=== PATIENT | female | born 1985 | race Hispanic/Latino ===

== ENCOUNTER 2018-07-06 12:41 | Emergency (ER) | payer OTHER ==
[2018-07-06] MEDS ORDERED: DiphenhydrAMINE HCL 50 MG/ML VIAL ONE (12:51)
[2018-07-06] MEDS ORDERED: METHYLPREDNISOLONE SOD SUCC 125MG/2ML VIAL ONE (12:51)
[2018-07-06] MEDS ORDERED: FAMOTIDINE/PF 20 MG/2 ML VIAL IV ONE (12:51)
[2018-07-06 13:33] LABS: BASOPHILS % (AUTO) 0.4 % (0.0-5.0); EOSINOPHILS % (AUTO) 1.2 % (0.0-8.0); HEMATOCRIT 33.3 % (36-48); LYMPHOCYTES % (AUTO) 34.6 % (21.0-51.0); MEAN CORPUSCULAR HEMOGLOBIN 22.7 pg (27.0-33.0); MEAN CORPUSCULAR HGB CONC 31.5 g/dL (32.0-36.0); MEAN CORPUSCULAR VOLUME 72.3 fL (79-99); MONOCYTES % (AUTO) 5.1 % (3.0-13.0); NEUTROPHILS % (AUTO) 58.7 % (40.0-77.0); PLATELET COUNT (AUTO) 330 K/uL (130-400); RED BLOOD CELL COUNT(AUTO) 4.61 MIL/uL (4.00-5.50); RED CELL DISTRIBUTION WIDTH 17.7 % (11.0-15.5); WHITE BLOOD COUNT (AUTO) 12.1 K/uL (4.8-10.8)
[2018-07-06 13:48] LABS: POTASSIUM 3.8 mmol/L (3.5-5.1)
== END 2018-07-06 14:33 | disposition home or self-care (01) ==
LOC: EDH 12:41
DX: L50.0 Allergic urticaria (principal); Z72.0 Tobacco use
CPT/HCPCS: 36415; 80048; 81025; 85025; 96374; 96375; 99284; J1200; J2930; J3490